=== PATIENT | male | born 2000 | race African-American/Black ===

== ENCOUNTER 2020-05-21 23:10 | Emergency (ER) | payer MEDICAID ==
[~2020-05-21] VITALS: Ht 180.3 cm; Wt 77.1 kg
--- NOTE | 2020-05-21 23:10 | NUR ---
Placed in room 1 . Placed on clinical research monitor, blood pressure machine and pulse oximeter. To gown for exam. Side rails up. Report given to JOSE GUADALUPE TILLMAN.
[2020-05-21] MEDS ORDERED: NACL 0.9% 1,000 ML IV ONE (23:15)
--- NOTE | 2020-05-21 23:15 | NUR ---
ER Dr. KRISHNA at bedside examining patient.
[2020-05-21 23:19] VITALS: BP_SYST 141
--- NOTE | 2020-05-21 23:20 | NUR ---
BLOOD DRAWN AND SENT PER LAB
--- NOTE | 2020-05-21 23:20 | NUR ---
PT AAO BIB AMBULANCE FROM [facility] FOR LITHIUM OD 300MG X 10 TABS AT 1400 TODAY. PT REPORTS DIARRHEA AND NAUSEA BUT DENIES ANY PAIN CURRENTLY. PT ARRIVED ON A 5150 HOLD FOR DTS. SITTER TO FOLLOW FROM [facility].
--- NOTE | 2020-05-21 23:45 | NUR ---
COVID SWABS OBTAINED AND SENT
--- NOTE | 2020-05-21 23:45 | NUR ---
LUISITO ARRIVED TO SIT WITH PT FROM [facility]
[2020-05-21 23:46] LABS: BASOPHILS % (AUTO) 0.4 % (0.0-2.0); EOSINOPHILS # (AUTO) 0.2 K/uL (0.0-0.4); EOSINOPHILS % (AUTO) 2.6 % (0.0-4.0); HEMATOCRIT 45.7 % (36-54); HEMOGLOBIN 15.3 g/dL (14.0-18.0); LYMPHOCYTES # (AUTO) 1.9 K/uL (1.0-5.5); LYMPHOCYTES % (AUTO) 22.6 % (20.5-51.5); MEAN CORPUSCULAR HEMOGLOBIN 30 pg (27-31); MEAN CORPUSCULAR HGB CONC 34 % (32-36); MEAN CORPUSCULAR VOLUME 90 fL (79.0-98.0); MONOCYTES # (AUTO) 0.7 K/uL (0.0-1.0); MONOCYTES % (AUTO) 7.7 % (1.7-9.3); NEUTROPHILS # (AUTO) 5.7 K/uL (1.8-7.7); NEUTROPHILS % (AUTO) 66.7 % (40.0-70.0); PLATELET COUNT (AUTO) 219 K/uL (130-430); RED BLOOD CELL COUNT(AUTO) 5.05 MIL/uL (4.2-6.2); WHITE BLOOD COUNT (AUTO) 8.5 K/uL (4.8-10.8)
--- NOTE | 2020-05-21 23:53 | NUR ---
DR. AVILES AT BEDSIDE RE-EVALUATING PT STATUS
[2020-05-21 23:58] LABS: ANION GAP 4 (5-15); CALCIUM 9.3 mg/dL (8.4-11.0); CHLORIDE 100 mmol/L (98-107); GLUCOSE 71 mg/dL (70-99); POTASSIUM 3.8 mmol/L (3.5-5.1); SODIUM SERUM 134 mmol/L (136-145); UREA NITROGEN, BLOOD 9 mg/dL (8-21)
[2020-05-21 23:59] LABS: GFR AFRICAN AMERICAN 98 mL/min (>90)
[2020-05-22 00:04] LABS: ALANINE AMINOTRANSFERASE 38 U/L (12-78); ALBUMIN 4.4 g/dL (3.4-4.8); ALCOHOL, BLOOD 7 mg/dL (<10); ASPARTATE AMINOTRANSFERASE 25 U/L (10-37); TOTAL BILIRUBIN 0.5 mg/dL (0.0-1.0)
--- NOTE | 2020-05-22 00:05 | NUR ---
Called Poison Control at [phone] and spoke with Mike. Per recommendations: check lithium level w/ in 2-4hrs until two level down to therapeutic range and if above 4 consider nephro consult for dialysis.Check sodium level and ekg qtc prolongation. Dr. Sanchez notified. Will continue to monitor patient.
[2020-05-22 00:08] LABS: ACETAMINOPHEN < 1 ug/mL (1-30)
--- NOTE | 2020-05-22 01:10 | NUR ---
REPORT CALLED TO GELA AT [facility]. TRANSPORT TO [facility] AT 0330.
--- NOTE | 2020-05-22 01:15 | NUR ---
REPORT TO DILIA WHO WILL ASSUME CARE UNTIL TRANSPORT ARRIVES
--- NOTE | 2020-05-22 01:16 | NUR ---
received report from LAYNE Turner for continuation of care.
--- NOTE | 2020-05-22 01:22 | NUR ---
PATIENT RESTING COMFORTABLY IN BED, NO SIGNS OF ACUTE DISTRESS. BREATHING EVEN AND UNLABORED. SITTER AT BEDSIDE.
--- NOTE | 2020-05-22 02:33 | NUR ---
PATIENT RESTING COMFORTABLY IN BED, NO SIGNS OF ACUTE DISTRESS. BREATHING EVEN AND UNLABORED. SITTER AT BEDSIDE.
--- NOTE | 2020-05-22 03:50 | NUR ---
[facility] ARRIVED TO TRANSPORT PATIENT TO [facility]. REPORT GIVEN TO EMS. DISCHARGE PAPERWORK PRINTED AND SENT WITH EMS.
[2020-05-22 03:55] VITALS: BP_SYST 116
== END 2020-05-22 03:55 ==
LOC: SED 23:10
DX: T56.891A Toxic effect of other metals, accidental (unintentional), initial encounter (principal); F31.9 Bipolar disorder, unspecified; F41.9 Anxiety disorder, unspecified; Z20.828 Contact with and (suspected) exposure to other viral communicable diseases; Y92.89 Other specified places as the place of occurrence of the external cause
CPT/HCPCS: 36415; 80053; 80178; 85025; 87426; 93005; 96360; 99285; C9803; G0480; G0481; G0482; J7030; U0003

== ENCOUNTER 2021-04-18 11:24 | Emergency (ER) | payer MEDICAID, SELFPAY ==
[~2021-04-18] VITALS: Ht 177.8 cm; Wt 93.0 kg
[2021-04-18 11:35] VITALS: BP_SYST 122
[2021-04-18 14:30] VITALS: BP_SYST 122
== END 2021-04-18 14:30 | disposition home or self-care (01) ==
LOC: SED 11:24
DX: R05.9 Cough, unspecified (principal); F32.9 Major depressive disorder, single episode, unspecified; F41.9 Anxiety disorder, unspecified; Z20.822 Contact with and (suspected) exposure to COVID-19
CPT/HCPCS: 36415; 86710; 99283